=== PATIENT | female | born 1970 | race Caucasian/White ===

== ENCOUNTER 2024-12-11 13:17 | Emergency (ER) | payer OTHER ==
[~2024-12-11] VITALS: Ht 162.6 cm; Wt 65.5 kg
[2024-12-11] MEDS ORDERED: ISOVUE-370 76% 100ML VIAL As Ordered ONE (14:21)
[2024-12-11] MEDS: PIPERACILLIN/TAZOBACTAM SOD 4.5 GM in DEXTROSE 5% (D5W) ADV/MINI-BAG 50 ML IV ONE (14:23)
[2024-12-11 14:28] LABS: BASO % 0.2 % (0.0-1.0); EOS # 0.2 10^3/uL (0.0-0.5); HEMATOCRIT 30.9 % (36.0-47.0); HEMOGLOBIN 9.5 g/dl (12.0-15.5); LYMPH % 43.9 % (24.0-44.0); MEAN CORPUSCULAR HEMOGLOBIN 31.1 pg (27.0-33.0); MEAN CORPUSCULAR HGB CONC 30.7 g/dl (32.0-36.5); MEAN CORPUSCULAR VOLUME 101.3 fl (80.0-96.0); MONO # 0.3 10^3/uL (0.0-0.8); MONO % 5.8 % (2.0-8.0); NEUTROPHILS % 45.9 % (36.0-66.0); PLATELET COUNT, AUTOMATED 273 10^3/uL (150-450); RED BLOOD COUNT 3.05 10^6/uL (4.00-5.40); WHITE BLOOD COUNT 4.5 10^3/uL (4.0-10.0)
[2024-12-11 14:40] LABS: INR 1.02; PARTIAL THROMBOPLASTIN TIME 29.2 SECONDS (24.8-34.2); PROTHROMBIN TIME 13.7 SECONDS (12.5-14.5)
[2024-12-11] MEDS: NS (Normal Saline) 0.9% 1,970 ML in IV 1 EA IV ONE (14:40)
[2024-12-11 14:48] LABS: AMYLASE 47 U/L (30-118); C REACTIVE PROTEIN QUANTITATIV 1.08 MG/DL (<1.0)
[2024-12-11 14:49] LABS: ALBUMIN 2.8 G/DL (3.2-5.2); ALKALINE PHOSPHATASE 80 U/L (35-104); ALT/SGPT < 9 U/L (7.0-40); AST/SGOT 17 U/L (<34); BILIRUBIN,DIRECT 0.1 MG/DL (<0.4); BILIRUBIN,TOTAL 0.3 MG/DL (0.3-1.2); BLOOD UREA NITROGEN 10 MG/DL (9-23); CALCIUM LEVEL 8.3 MG/DL (8.5-10.1); CARBON DIOXIDE LEVEL 20 MMOL/L (20-31); CHLORIDE LEVEL 117 MMOL/L (98-107); CREATININE FOR GFR 1.15 MG/DL (0.55-1.30); GLOMERULAR FILTRATION RATE 56.6 (>51); GLUCOSE, FASTING 85 MG/DL (60-100); POTASSIUM SERUM 3.9 MMOL/L (3.5-5.1); SODIUM LEVEL 144 MMOL/L (136-145)
[2024-12-11 14:56] LABS: PROCALCITONIN 0.11 ng/ml
[2024-12-11] MEDS: NS (Normal Saline) 0.9% 1,000 ML IV ONE (16:04)
[2024-12-11] MEDS: fentaNYL 100 MCG/2 ML INJECTION IV ONE (16:04)
[2024-12-11] MEDS ORDERED: FLUTISP (17:01)
[2024-12-11] MEDS ORDERED: URSO300C3 (17:01)
[2024-12-11] MEDS ORDERED: ONDA-83 (17:01)
[2024-12-11] MEDS ORDERED: RIZA10TA58 (17:01)
[2024-12-11] MEDS ORDERED: TOPI-21 (17:01)
[2024-12-11] MEDS ORDERED: HYDR50TA70 (17:01)
[2024-12-11] MEDS ORDERED: CLON0.5T2 (17:01)
[2024-12-11] MEDS ORDERED: PROC5TAB57 (17:01)
[2024-12-11] MEDS ORDERED: PARO30TA4 (17:01)
[2024-12-11] MEDS ORDERED: TIZA10TA (17:01)
[2024-12-11] MEDS ORDERED: BUSP15TA47 (17:01)
[2024-12-11] MEDS ORDERED: OMEP40CA5 (17:01)
[2024-12-11 18:17] VITALS: BP 121/70; TEMP 97.3; O2SAT 100
== END 2024-12-11 18:19 | disposition short-term general hospital (02) ==
LOC: M ED 13:17
DX: R10.9 Unspecified abdominal pain (principal); F41.9 Anxiety disorder, unspecified; F17.210 Nicotine dependence, cigarettes, uncomplicated; R00.1 Bradycardia, unspecified; Z88.6 Allergy status to analgesic agent; Z88.8 Allergy status to other drugs, medicaments and biological substances; Z91.030 Bee allergy status; Z91.041 Radiographic dye allergy status; Z79.899 Other long term (current) drug therapy
CPT/HCPCS: 74176; 80047; 80048; 80076; 82150; 83605; 84145; 85025; 85610; 85730; 86140; 86850; 86900; 86901; 87040; 93005; 93041; 94760; 96361; 96365; 96375; 99285; J2543; J3010